=== PATIENT | female | born 1990 | race Caucasian/White ===

== ENCOUNTER 2018-04-22 16:02 | Inpatient (IN) ==
[2018-04-22] MEDS ORDERED: MEPERIDINE 50 MG/1 ML VIAL IV PRN (16:15)
[2018-04-22] MEDS ORDERED: BUTORPHANOL 2 MG/ML VIAL IV PRN (16:15)
[2018-04-22] MEDS ORDERED: ONDANSETRON 4 MG/2 ML VIAL IV PRN (16:15)
[2018-04-22] MEDS ORDERED: DINOPROSTONE VAG GEL 10 MG SYRINGE VAG ONE (16:17)
[2018-04-22 16:49] LABS: Basophils % 0.1 % (0.0-0.8); Eosinophils # 0.1 10*3/uL (0.0-0.87); Eosinophils % 0.8 % (0.00-10.9); Hematocrit 32.2 VOL% (35.7-47.0); Hemoglobin 10.4 GM/DL (12.0-16.0); Immature Granulocytes % 0.3 %; Immature Granulocytes Absolute 0.03 #; Lymphocytes # 1.8 10*3/uL (1.4-4.0); Lymphocytes % 20.5 % (21.3-54.2); Mean Corpuscular HGB Conc 32.3 GM/DL (32-36); Mean Corpuscular Hemoglobin 29 PG (27-34); Mean Corpuscular Volume 90.7 FL (87-102); Monocytes # 0.5 10*3/uL (0.11-0.8); Monocytes % 5.8 % (1.7-12.7); Neutrophils # 6.3 10*3/uL (1.4-7.4); Neutrophils % 72.5 % (38.7-73.9); Platelet Count 246 T/CUMM (130-400); Red Blood Count 3.55 MC/CUMM (3.8-5.5); Red Cell Distribution Width 13.9 % (9.3-17.3); White Blood Count 8.8 T/CUMM (4-12)
[2018-04-22 17:21] LABS: Alanine Aminotransferase 15 U/L (13-56); Albumin 2.3 G/DL (3.4-5.0); Alkaline Phosphatase 168 U/L (45-117); Aspartate Amino Transferase 14 U/L (0-37); Bilirubin,Total < 0.39 MG/DL (0.2-1.0); Blood Urea Nitrogen 7 MG/DL (7-18); Calcium 8.7 MG/DL (8.5-10.1); Glucose 108 MG/DL (74-106); Osmolality,Calculated 277.4 MOS/KG (273-304); Potassium 3.7 MMOL/L (3.5-5.1); Sodium 140 MMOL/L (136-145); Total Protein 6.8 G/DL (6.4-8.3)
[2018-04-22] MEDS: LACTATED RINGERS 1,000 ML IV SCH ×2 (17:41→22:45)
[2018-04-23] MEDS ORDERED: OXYTOCIN/LR 20 UNIT/1,000 ML BAG IV SCH (02:00)
[2018-04-23] MEDS ORDERED: hydrOXYzine HCL 25 MG/1 ML VIAL IM PRN (07:16)
[2018-04-23] MEDS ORDERED: NALOXONE 0.4 MG/ML VIAL IV PRN (07:16)
[2018-04-23] MEDS ORDERED: PROMETHAZINE 25 MG/1 ML VIAL IM ONE (07:16)
[2018-04-23] MEDS ORDERED: ePHEDrine 50 MG/ML AMP IV PRN (07:16)
[2018-04-23] MEDS ORDERED: diphenhydrAMINE 50 MG/1 ML VIAL IV PRN ×2 (07:16)
[2018-04-23] MEDS ORDERED: FAMOTIDINE 20 MG/2 ML VIAL IV ONE (07:16)
[2018-04-23] MEDS ORDERED: CITRIC ACID/SODIUM CITRATE 30 ML UDCUP PO ONE (07:16)
[2018-04-23] MEDS ORDERED: ONDANSETRON 4 MG/2 ML VIAL IV ONE (07:16)
[2018-04-23] MEDS ORDERED: LACTATED RINGERS 1,000 ML IV ONE (07:16)
[2018-04-23] MEDS ORDERED: fentaNYL 2 MCG/ROPIV 0.2% EPID 100 ML EPIDURAL SCH (07:30)
[2018-04-23 09:44] LABS: Apearance,Urine CLEAR (Clear); Bacteria,Urine Occasional /HPF (Few); Bilirubin,Urine Negative (Negative); Blood, Urine Negative (Negative); Glucose,Urine (UA) Negative (Negative); Ketones,Urine Negative (Negative); Nitrite,Urine Positive (Negative); Protein,Urine Negative; RBC,Urine <1 /HPF (0-4); Squamous Epithelial Cell,Urine Occasional /HPF (0-10); Urine Color Yellow (Yellow); Urine Urobilinogen < 2.0 EU/DL (0.2-1.0); WBC,Urine 1 /HPF (0-6)
[2018-04-23] MEDS ORDERED: miSOPROStol 200 MCG TABLET ONE (12:26)
[2018-04-23] MEDS ORDERED: LIDOCAINE 1% 50 ML VIAL ONE (12:26)
[2018-04-23] MEDS ORDERED: METHYLERGONOVINE 0.2 MG/1 ML AMP ONE (12:27)
[2018-04-23] MEDS ORDERED: CARBOPROST TROMETHAMINE 250 MCG/ML AMP IM ONE (12:27)
[2018-04-23] MEDS ORDERED: BISACODYL 10 MG SUPP RECTAL PRN (16:24)
[2018-04-23] MEDS ORDERED: LANOLIN 50% CREAM 0.3 OZ TUBE TOP PRN (16:24)
[2018-04-23] MEDS ORDERED: oxyCODONE/ACETAMINOPHEN 5-325 MG TABLET PO PRN (16:24)
[2018-04-23] MEDS ORDERED: ACETAMINOPHEN/CODEINE 300-30 MG TABLET PO PRN (16:24)
[2018-04-23] MEDS ORDERED: BENZOCAINE 20%/MENTHOL 0.5% SPRAY 56 GM CAN TOP PRN (16:24)
[2018-04-23] MEDS ORDERED: ACETAMINOPHEN 325 MG TABLET PO PRN (16:24)
[2018-04-23] MEDS ORDERED: WITCH HAZEL PADS 100/JAR TOP PRN (16:24)
[2018-04-23] MEDS ORDERED: HYDROCORTISONE 2.5% RECTAL CREAM 30 GM TUBE TOP PRN (16:24)
[2018-04-23] MEDS ORDERED: MEASLES/MUMPS/RUBELLA VACCINE 0.5 ML VIAL SUBCUT ONE (16:30)
[2018-04-23] MEDS ORDERED: DIPH/TET/ACEL PERT BOOSTER VACCINE 0.5 ML VIAL IM ONE (16:30)
[2018-04-23] MEDS ORDERED: RHO(D) IMMUNE GLOBULIN 300 MCG SYRINGE IM ONE (17:00)
[2018-04-23] MEDS: oxyCODONE/ACETAMINOPHEN 5-325 MG TABLET PO PRN (18:11)
[2018-04-23] MEDS ORDERED: OXYTOCIN/LR 20 UNIT/1,000 ML BAG IV ONE (19:29)
[2018-04-23] MEDS: IBUPROFEN 800 MG TABLET PO PRN (19:46)
[2018-04-24 05:39] LABS: Basophils % 0.3 % (0.0-0.8); Eosinophils # 0.1 10*3/uL (0.0-0.87); Hematocrit 27.8 VOL% (35.7-47.0); Immature Granulocytes % 0.9 %; Lymphocytes # 2.5 10*3/uL (1.4-4.0); Lymphocytes % 21.4 % (21.3-54.2); Mean Corpuscular HGB Conc 32.4 GM/DL (32-36); Mean Corpuscular Hemoglobin 29 PG (27-34); Mean Corpuscular Volume 90.8 FL (87-102); Mean Platelet Volume 10.3 FL (9.6-12.0); Monocytes # 0.7 10*3/uL (0.11-0.8); Monocytes % 5.6 % (1.7-12.7); Neutrophils # 8.3 10*3/uL (1.4-7.4); Neutrophils % 70.8 % (38.7-73.9); Platelet Count 200 T/CUMM (130-400); Red Blood Count 3.06 MC/CUMM (3.8-5.5); Red Cell Distribution Width 13.8 % (9.3-17.3); White Blood Count 11.7 T/CUMM (4-12)
[2018-04-24] MEDS: FERROUS SULFATE 325 MG TABLET PO SCH ×2 (08:54→20:11)
[2018-04-24] MEDS: DOCUSATE SODIUM 100 MG CAPSULE PO SCH ×2 (08:55→20:11)
[2018-04-24] MEDS: oxyCODONE/ACETAMINOPHEN 5-325 MG TABLET PO PRN ×2 (10:22→17:34)
[2018-04-24] MEDS: IBUPROFEN 800 MG TABLET PO PRN (17:33)
[2018-04-24] MEDS: NITROFURANTOIN MACRO/MONO 100 MG CAPSULE PO SCH (21:50)
[2018-04-25] MEDS: oxyCODONE/ACETAMINOPHEN 5-325 MG TABLET PO PRN (02:39)
[2018-04-25] MEDS: IBUPROFEN 800 MG TABLET PO PRN (07:18)
[2018-04-25 07:40] VITALS: BP 150/78
[2018-04-25] MEDS: FERROUS SULFATE 325 MG TABLET PO SCH (09:02)
[2018-04-25] MEDS: DOCUSATE SODIUM 100 MG CAPSULE PO SCH (09:02)
[2018-04-25] MEDS: NITROFURANTOIN MACRO/MONO 100 MG CAPSULE PO SCH (09:02)
== END 2018-04-25 10:40 | disposition home or self-care (01) | DRG 560 ==
LOC: N.LDOUT 16:02 → N.LD 16:04 → N.OB 04-23 15:38
PROVIDERS: ADMIT Obstetrics & Gynecology; ATTEND Obstetrics & Gynecology

== ENCOUNTER 2019-09-02 05:57 | Inpatient (IN) ==
[2019-09-02] MEDS ORDERED: ONDANSETRON 4 MG/2 ML VIAL IV PRN (06:11)
[2019-09-02] MEDS ORDERED: BUTORPHANOL 2 MG/ML VIAL IV PRN (06:11)
[2019-09-02] MEDS ORDERED: LACTATED RINGERS 500 ML IV PRN (06:11)
[2019-09-02] MEDS ORDERED: MEPERIDINE 50 MG/1 ML VIAL IV PRN (06:11)
[2019-09-02] MEDS: LACTATED RINGERS 1,000 ML IV SCH ×2 (06:30→10:16)
[2019-09-02] MEDS ORDERED: OXYTOCIN/LR 20 UNIT/1,000 ML BAG IV SCH (06:30)
[2019-09-02 06:39] LABS: Basophils % 0.5 % (0.0-0.8); Eosinophils # 0.1 10*3/uL (0.0-0.87); Eosinophils % 0.8 % (0.00-10.9); Hematocrit 33.8 VOL% (35.7-47.0); Immature Granulocytes % 0.4 %; Immature Granulocytes Absolute 0.03 #; Lymphocytes # 2.1 10*3/uL (1.4-4.0); Lymphocytes % 24.6 % (21.3-54.2); Mean Corpuscular HGB Conc 32.5 GM/DL (32-36); Mean Corpuscular Volume 90.4 FL (87-102); Mean Platelet Volume 10.1 FL (9.6-12.0); Monocytes % 5.9 % (1.7-12.7); Neutrophils % 67.8 % (38.7-73.9); Platelet Count 230 T/CUMM (130-400); Red Blood Count 3.74 MC/CUMM (3.8-5.5); Red Cell Distribution Width 13.1 % (9.3-17.3); White Blood Count 8.5 T/CUMM (4-12)
[2019-09-02 07:00] LABS: Alanine Aminotransferase 11 U/L (13-56); Albumin 2.6 G/DL (3.4-5.0); Alkaline Phosphatase 131 U/L (45-117); Aspartate Amino Transferase 11 U/L (0-37); Bilirubin,Total < 0.39 MG/DL (0.2-1.0); Blood Urea Nitrogen 10 MG/DL (7-18); Calcium 8.9 MG/DL (8.5-10.1); Estimated Glom Filtration Rate 135 ML/MIN; Glucose 83 MG/DL (74-106); Osmolality,Calculated 270.8 MOS/KG (273-304); Total Protein 6.9 G/DL (6.4-8.3)
[2019-09-02] MEDS ORDERED: hydrOXYzine HCL 25 MG/1 ML VIAL IM PRN (09:25)
[2019-09-02] MEDS ORDERED: FAMOTIDINE 20 MG/2 ML VIAL IV ONE (09:25)
[2019-09-02] MEDS ORDERED: diphenhydrAMINE 50 MG/1 ML VIAL IV PRN ×2 (09:25)
[2019-09-02] MEDS ORDERED: ePHEDrine 50 MG/ML AMP IV PRN ×2 (09:25)
[2019-09-02] MEDS ORDERED: CITRIC ACID/SODIUM CITRATE 30 ML UDCUP PO ONE (09:25)
[2019-09-02] MEDS ORDERED: PROMETHAZINE 25 MG/1 ML VIAL IM ONE (09:25)
[2019-09-02] MEDS ORDERED: NALOXONE 0.4 MG/ML VIAL IV PRN (09:25)
[2019-09-02] MEDS ORDERED: ONDANSETRON 4 MG/2 ML VIAL IV ONE (09:25)
[2019-09-02] MEDS ORDERED: fentaNYL 2 MCG/ROPIV 0.2% EPID 100 ML EPIDURAL SCH (09:30)
[2019-09-02] MEDS ORDERED: ePHEDrine 50 MG/ML AMP ONE (09:40)
[2019-09-02 12:21] LABS: Apearance,Urine CLEAR (Clear); Bilirubin,Urine Negative (Negative); Blood, Urine Negative (Negative); Glucose,Urine (UA) Negative (Negative); Ketones,Urine Negative (Negative); Mucus,Urine Occasional /LPF (Occasional); Nitrite,Urine Negative (Negative); Protein,Urine Negative; RBC,Urine <1 /HPF (0-4); Urine Color Yellow (Yellow); Urine Specific Gravity 1.016 (1.001-1.035); Urine Urobilinogen < 2.0 EU/DL (0.2-1.0); WBC,Urine <1 /HPF (0-6)
[2019-09-02] MEDS ORDERED: miSOPROStoL 200 MCG TABLET ONE (16:35)
[2019-09-02] MEDS ORDERED: LIDOCAINE 1% 50 ML VIAL ONE (16:36)
[2019-09-02] MEDS ORDERED: METHYLERGONOVINE 0.2 MG/1 ML AMP ONE (16:36)
[2019-09-02] MEDS ORDERED: OXYTOCIN/LR 20 UNIT/1,000 ML BAG IV ONE ×2 (16:36→20:05)
[2019-09-02] MEDS ORDERED: DIPH/TET/ACEL PERT BOOSTER VACCINE 0.5 ML VIAL IM ONE (20:05)
[2019-09-02] MEDS ORDERED: LANOLIN 50% CREAM 0.3 OZ TUBE TOP PRN (20:05)
[2019-09-02] MEDS ORDERED: BENZOCAINE 20%/MENTHOL 0.5% SPRAY 56 GM CAN TOP PRN (20:05)
[2019-09-02] MEDS ORDERED: RHO(D) IMMUNE GLOBULIN 300 MCG SYRINGE IM ONE (20:05)
[2019-09-02] MEDS ORDERED: ACETAMINOPHEN 325 MG TABLET PO PRN (20:05)
[2019-09-02] MEDS ORDERED: WITCH HAZEL PADS 100/JAR TOP PRN (20:05)
[2019-09-02] MEDS ORDERED: oxyCODONE/ACETAMINOPHEN 5-325 MG TABLET PO PRN (20:05)
[2019-09-02] MEDS ORDERED: BISACODYL 10 MG SUPP RECTAL PRN (20:05)
[2019-09-02] MEDS ORDERED: MEASLES/MUMPS/RUBELLA VACCINE 0.5 ML VIAL SUBCUT ONE (20:05)
[2019-09-02] MEDS ORDERED: HYDROCORTISONE 2.5% RECTAL CREAM 30 GM TUBE TOP PRN (20:05)
[2019-09-02] MEDS: DOCUSATE SODIUM 100 MG CAPSULE PO SCH (22:58)
[2019-09-02] MEDS: IBUPROFEN 800 MG TABLET PO PRN (22:58)
[2019-09-03 04:34] LABS: Basophils % 0.2 % (0.0-0.8); Eosinophils # 0.1 10*3/uL (0.0-0.87); Eosinophils % 0.9 % (0.00-10.9); Hematocrit 30.7 VOL% (35.7-47.0); Hemoglobin 9.9 GM/DL (12.0-16.0); Immature Granulocytes % 0.5 %; Immature Granulocytes Absolute 0.06 #; Lymphocytes # 2.3 10*3/uL (1.4-4.0); Lymphocytes % 18.6 % (21.3-54.2); Mean Corpuscular HGB Conc 32.2 GM/DL (32-36); Mean Corpuscular Volume 92.5 FL (87-102); Monocytes % 6.6 % (1.7-12.7); Neutrophils % 73.2 % (38.7-73.9); Platelet Count 181 T/CUMM (130-400); Red Blood Count 3.32 MC/CUMM (3.8-5.5); Red Cell Distribution Width 12.9 % (9.3-17.3); White Blood Count 12.3 T/CUMM (4-12)
[2019-09-03] MEDS: DOCUSATE SODIUM 100 MG CAPSULE PO SCH ×2 (08:45→21:05)
[2019-09-03] MEDS: oxyCODONE/ACETAMINOPHEN 5-325 MG TABLET PO PRN ×2 (09:24→16:43)
[2019-09-03] MEDS: IBUPROFEN 800 MG TABLET PO PRN (16:43)
[2019-09-04 07:22] VITALS: BP 99/56
[2019-09-04] MEDS: IBUPROFEN 800 MG TABLET PO PRN (07:30)
== END 2019-09-04 12:55 | disposition home or self-care (01) | DRG 560 ==
LOC: N.LD 05:57 → N.OB 22:40
PROVIDERS: ADMIT Obstetrics & Gynecology; ATTEND Obstetrics & Gynecology